=== PATIENT | male | born 1960 | race Caucasian/White ===

== ENCOUNTER → 2019-03-17 | Outpatient (CLI) | payer BC | LOC: M.WC 08:20 | DX: I87.332 Chronic venous hypertension (idiopathic) with ulcer and inflammation of left lower extremity (principal); L97.322 Non-pressure chronic ulcer of left ankle with fat layer exposed; E66.9 Obesity, unspecified; I10 Essential (primary) hypertension; M15.0 Primary generalized (osteo)arthritis; N40.1 Benign prostatic hyperplasia with lower urinary tract symptoms; Z86.73 Personal history of transient ischemic attack (TIA), and cerebral infarction without residual deficits; Z79.82 Long term (current) use of aspirin; Z68.34 Body mass index [BMI] 34.0-34.9, adult ==

== ENCOUNTER → 2019-03-24 | Outpatient (CLI) | payer BC | LOC: M.WC 00:37 | DX: I87.332 Chronic venous hypertension (idiopathic) with ulcer and inflammation of left lower extremity (principal); L97.322 Non-pressure chronic ulcer of left ankle with fat layer exposed; E66.9 Obesity, unspecified; M15.0 Primary generalized (osteo)arthritis; N40.1 Benign prostatic hyperplasia with lower urinary tract symptoms; Z86.73 Personal history of transient ischemic attack (TIA), and cerebral infarction without residual deficits; Z68.34 Body mass index [BMI] 34.0-34.9, adult ==

== ENCOUNTER → 2019-03-30 | Outpatient (CLI) | payer BC | LOC: M.WC 11:55 | DX: I87.332 Chronic venous hypertension (idiopathic) with ulcer and inflammation of left lower extremity (principal); L97.321 Non-pressure chronic ulcer of left ankle limited to breakdown of skin; M15.0 Primary generalized (osteo)arthritis; N40.1 Benign prostatic hyperplasia with lower urinary tract symptoms; Z86.73 Personal history of transient ischemic attack (TIA), and cerebral infarction without residual deficits ==

== ENCOUNTER → 2019-04-07 | Outpatient (CLI) | payer BC | LOC: M.WC 00:03 | DX: I87.332 Chronic venous hypertension (idiopathic) with ulcer and inflammation of left lower extremity (principal); L97.322 Non-pressure chronic ulcer of left ankle with fat layer exposed; E66.9 Obesity, unspecified; M15.0 Primary generalized (osteo)arthritis; N40.1 Benign prostatic hyperplasia with lower urinary tract symptoms; Z86.73 Personal history of transient ischemic attack (TIA), and cerebral infarction without residual deficits; Z68.34 Body mass index [BMI] 34.0-34.9, adult ==

== ENCOUNTER → 2019-04-14 | Outpatient (CLI) | payer BC | LOC: M.WC 05:03 | DX: I87.332 Chronic venous hypertension (idiopathic) with ulcer and inflammation of left lower extremity (principal); L97.321 Non-pressure chronic ulcer of left ankle limited to breakdown of skin; E66.9 Obesity, unspecified; M15.0 Primary generalized (osteo)arthritis; N40.1 Benign prostatic hyperplasia with lower urinary tract symptoms; Z86.73 Personal history of transient ischemic attack (TIA), and cerebral infarction without residual deficits; Z68.34 Body mass index [BMI] 34.0-34.9, adult ==

== ENCOUNTER → 2019-04-21 | Outpatient (CLI) | payer BC | LOC: M.WC 04:42 | DX: I87.332 Chronic venous hypertension (idiopathic) with ulcer and inflammation of left lower extremity (principal); L97.328 Non-pressure chronic ulcer of left ankle with other specified severity; M15.0 Primary generalized (osteo)arthritis; N40.1 Benign prostatic hyperplasia with lower urinary tract symptoms; Z68.34 Body mass index [BMI] 34.0-34.9, adult; Z86.73 Personal history of transient ischemic attack (TIA), and cerebral infarction without residual deficits ==

== ENCOUNTER → 2020-04-16 | Outpatient (CLI) | payer BC | LOC: M.WC 09:00 | DX: I83.023 Varicose veins of left lower extremity with ulcer of ankle (principal); L97.321 Non-pressure chronic ulcer of left ankle limited to breakdown of skin; G47.30 Sleep apnea, unspecified; I10 Essential (primary) hypertension; Z86.73 Personal history of transient ischemic attack (TIA), and cerebral infarction without residual deficits ==

== ENCOUNTER → 2020-04-23 | Outpatient (CLI) | payer BC | LOC: M.WC 04:25 | PROVIDERS: ATTEND Emergency Medicine Undersea and Hyperbaric Medicine | DX: I83.023 Varicose veins of left lower extremity with ulcer of ankle (principal); L97.321 Non-pressure chronic ulcer of left ankle limited to breakdown of skin; G47.30 Sleep apnea, unspecified; I10 Essential (primary) hypertension; Z86.73 Personal history of transient ischemic attack (TIA), and cerebral infarction without residual deficits ==

== ENCOUNTER → 2020-04-25 | Outpatient (CLI) | payer BC | LOC: M.WC 15:54 | PROVIDERS: ATTEND Emergency Medicine Undersea and Hyperbaric Medicine | DX: I83.023 Varicose veins of left lower extremity with ulcer of ankle (principal); L97.321 Non-pressure chronic ulcer of left ankle limited to breakdown of skin; G47.30 Sleep apnea, unspecified; H54.7 Unspecified visual loss; I10 Essential (primary) hypertension; Z86.73 Personal history of transient ischemic attack (TIA), and cerebral infarction without residual deficits ==

== ENCOUNTER → 2020-04-30 | Outpatient (CLI) | payer BC | LOC: M.WC 03:50 | PROVIDERS: ATTEND Emergency Medicine Undersea and Hyperbaric Medicine | DX: I83.023 Varicose veins of left lower extremity with ulcer of ankle (principal); L97.321 Non-pressure chronic ulcer of left ankle limited to breakdown of skin; G47.30 Sleep apnea, unspecified; H54.62 Unqualified visual loss, left eye, normal vision right eye; I10 Essential (primary) hypertension; Z86.73 Personal history of transient ischemic attack (TIA), and cerebral infarction without residual deficits ==

== ENCOUNTER → 2020-05-07 | Outpatient (CLI) | payer BC | LOC: M.WC 04:56 | PROVIDERS: ATTEND Emergency Medicine Undersea and Hyperbaric Medicine | DX: I83.023 Varicose veins of left lower extremity with ulcer of ankle (principal); L97.321 Non-pressure chronic ulcer of left ankle limited to breakdown of skin; G47.30 Sleep apnea, unspecified; I10 Essential (primary) hypertension; Z86.73 Personal history of transient ischemic attack (TIA), and cerebral infarction without residual deficits ==

== ENCOUNTER → 2020-05-14 | Outpatient (CLI) | payer BC | LOC: M.WC 04:25 | PROVIDERS: ATTEND Emergency Medicine Undersea and Hyperbaric Medicine | DX: I83.023 Varicose veins of left lower extremity with ulcer of ankle (principal); L97.321 Non-pressure chronic ulcer of left ankle limited to breakdown of skin; G47.30 Sleep apnea, unspecified; I10 Essential (primary) hypertension; Z86.73 Personal history of transient ischemic attack (TIA), and cerebral infarction without residual deficits ==

== ENCOUNTER → 2020-05-23 | Outpatient (CLI) | payer BC | LOC: M.WC 04:22 | PROVIDERS: ATTEND Family Medicine | DX: I83.023 Varicose veins of left lower extremity with ulcer of ankle (principal); L97.322 Non-pressure chronic ulcer of left ankle with fat layer exposed; H54.62 Unqualified visual loss, left eye, normal vision right eye; E66.9 Obesity, unspecified; I10 Essential (primary) hypertension; G47.30 Sleep apnea, unspecified; Z86.73 Personal history of transient ischemic attack (TIA), and cerebral infarction without residual deficits; Z68.36 Body mass index [BMI] 36.0-36.9, adult ==

== ENCOUNTER → 2020-05-28 | Outpatient (CLI) | payer BC | LOC: M.WC 04:27 | PROVIDERS: ATTEND Emergency Medicine Undersea and Hyperbaric Medicine | DX: I83.023 Varicose veins of left lower extremity with ulcer of ankle (principal); L97.321 Non-pressure chronic ulcer of left ankle limited to breakdown of skin; G47.30 Sleep apnea, unspecified; H54.7 Unspecified visual loss; I10 Essential (primary) hypertension; Z86.73 Personal history of transient ischemic attack (TIA), and cerebral infarction without residual deficits ==

== ENCOUNTER → 2020-05-29 | Outpatient (CLI) | payer BC | LOC: M.WC 09:00 | PROVIDERS: ATTEND Surgery | DX: I83.023 Varicose veins of left lower extremity with ulcer of ankle (principal); L97.321 Non-pressure chronic ulcer of left ankle limited to breakdown of skin; I10 Essential (primary) hypertension; G47.30 Sleep apnea, unspecified; Z86.73 Personal history of transient ischemic attack (TIA), and cerebral infarction without residual deficits ==

== ENCOUNTER → 2020-06-03 | Outpatient (CLI) | payer BC | LOC: M.WC 03:48 | PROVIDERS: ATTEND Emergency Medicine Undersea and Hyperbaric Medicine | DX: I83.023 Varicose veins of left lower extremity with ulcer of ankle (principal); L97.321 Non-pressure chronic ulcer of left ankle limited to breakdown of skin; G47.30 Sleep apnea, unspecified; H54.62 Unqualified visual loss, left eye, normal vision right eye; I10 Essential (primary) hypertension; Z86.73 Personal history of transient ischemic attack (TIA), and cerebral infarction without residual deficits ==

== ENCOUNTER → 2020-06-18 | Outpatient (CLI) | payer BC | LOC: M.WC 06-11 08:00 | PROVIDERS: ATTEND Emergency Medicine Undersea and Hyperbaric Medicine | DX: I83.023 Varicose veins of left lower extremity with ulcer of ankle (principal); L97.321 Non-pressure chronic ulcer of left ankle limited to breakdown of skin; I10 Essential (primary) hypertension; G47.30 Sleep apnea, unspecified; Z86.73 Personal history of transient ischemic attack (TIA), and cerebral infarction without residual deficits ==

== ENCOUNTER → 2020-06-25 | Outpatient (CLI) | payer BC | LOC: M.WC 05:37 | PROVIDERS: ATTEND Emergency Medicine Undersea and Hyperbaric Medicine | DX: I83.023 Varicose veins of left lower extremity with ulcer of ankle (principal); L97.321 Non-pressure chronic ulcer of left ankle limited to breakdown of skin; I87.2 Venous insufficiency (chronic) (peripheral); H54.62 Unqualified visual loss, left eye, normal vision right eye; I10 Essential (primary) hypertension; G47.30 Sleep apnea, unspecified; Z86.73 Personal history of transient ischemic attack (TIA), and cerebral infarction without residual deficits; Z79.82 Long term (current) use of aspirin ==

== ENCOUNTER → 2020-10-28 | Outpatient (CLI) | payer BC | LOC: M.LAB 15:09 | PROVIDERS: ATTEND Podiatrist Foot Surgery | DX: Z20.828 Contact with and (suspected) exposure to other viral communicable diseases (principal) ==